=== PATIENT | male | born 1940 | race Caucasian/White ===

== ENCOUNTER 2020-07-14 10:20 | Inpatient (IN) | payer OTHER ==
[~2020-07-14] VITALS: Ht 185.4 cm; Wt 104.3 kg
[~2020-07-14 10:20] MED LIST: ALLOPURINOL100 MG PO; CRESTOR10 MG PO; FLOMAX 0.4 MG0.4 MG PO; GABAPENTIN800 MG PO; GLIPIZIDE5 MG PO; HYDROXYZINE HCL10 MG PO; ISOSORBIDE MONO30 MG PO; JANUVIA100 MG PO; LISINOPRIL5 MG PO; PAROXETINE HCL10 MG PO; PROTONIX 40 MG40 M1 PO
[2020-07-14 11:37] LABS: HEMOGLOBIN 11.9 gm/dl (14.0-17.5); RED BLOOD COUNT 3.66 M/UL (4.20-5.50); WHITE BLOOD COUNT 6.4 K/UL (4.5-11.0)
[2020-07-14 12:53] LABS: BUN/CREATININE RATIO 19 (0-10)
[2020-07-15 04:00] LABS: HEMOGLOBIN 10.9 gm/dl (14.0-17.5); RED BLOOD COUNT 3.38 M/UL (4.20-5.50)
[2020-07-15 04:02] LABS: WHITE BLOOD COUNT 9.6 K/UL (4.5-11.0)
[2020-07-15 12:16] LABS: HEMOGLOBIN 9.8 gm/dl (14.0-17.5); WHITE BLOOD COUNT 10.2 K/UL (4.5-11.0)
[2020-07-15 12:18] LABS: RED BLOOD COUNT 3.03 M/UL (4.20-5.50)
[2020-07-16 02:49] LABS: HEMOGLOBIN 9.5 gm/dl (14.0-17.5); RED BLOOD COUNT 2.78 M/UL (4.20-5.50); WHITE BLOOD COUNT 9.5 K/UL (4.5-11.0)
[2020-07-17 03:53] LABS: HEMOGLOBIN 7.9 gm/dl (14.0-17.5); WHITE BLOOD COUNT 9.1 K/UL (4.5-11.0)
--- NOTE | 2020-07-17 03:59 | NUR ---
07/16/20 2300 PT PULLED ROBERTSON CATHETER OUT. SMALL AMOUNT OF BLOOD NOTED TO INSERTION SITE. WILL LET MD KNOW TO SEE IF HE WANTS IT REINSERTED.
[2020-07-17 04:04] LABS: RED BLOOD COUNT 2.4 M/UL (4.20-5.50)
--- NOTE | 2020-07-17 05:02 | NUR ---
0430 PT BLADDERED SCAN 600 ML NOTED
--- NOTE | 2020-07-17 14:00 | NUR ---
COURTNEYE STATES PT WITH TEMP OF 102. TYLENOL ORDERED AND GIVEN
--- NOTE | 2020-07-17 18:24 | NUR ---
PER MD OK TO LEAVE OUT ROBERTSON CATHETER, IF PATIENT DOESNT URINATE REPLACE CATHETER.
[2020-07-18 06:31] LABS: WHITE BLOOD COUNT 7.8 K/UL (4.5-11.0)
[2020-07-18 06:55] LABS: HEMOGLOBIN 6.6 gm/dl (14.0-17.5); RED BLOOD COUNT 2.01 M/UL (4.20-5.50)
[2020-07-18 11:15] LABS: HEMOGLOBIN 6.7 gm/dl (14.0-17.5)
[2020-07-18 19:05] LABS: HEMOGLOBIN 7.4 gm/dl (14.0-17.5)
[2020-07-19 02:32] LABS: RED BLOOD COUNT 2.1 M/UL (4.20-5.50); WHITE BLOOD COUNT 7.4 K/UL (4.5-11.0)
[2020-07-19 02:39] LABS: HEMOGLOBIN 6.8 gm/dl (14.0-17.5)
[2020-07-19 11:14] LABS: HEMOGLOBIN 8.3 gm/dl (14.0-17.5)
--- NOTE | 2020-07-19 18:19 | NUR ---
CHANGED PT AQUACEL DRESSING. SEROSENGANIOUS DRAINAGE NOTED ON DRESSING. SITE LOOKS GOOD WITH MILD REDNESS AND MODERATE EDEMA AT INCISION SITE.
[2020-07-20 03:08] LABS: HEMOGLOBIN 7.4 gm/dl (14.0-17.5); WHITE BLOOD COUNT 6.1 K/UL (4.5-11.0)
[2020-07-20 03:09] LABS: RED BLOOD COUNT 2.33 M/UL (4.20-5.50)
[2020-07-21 05:44] LABS: HEMOGLOBIN 7.4 gm/dl (14.0-17.5); RED BLOOD COUNT 2.3 M/UL (4.20-5.50); WHITE BLOOD COUNT 6.2 K/UL (4.5-11.0)
[2020-07-22 03:45] LABS: HEMOGLOBIN 7.8 gm/dl (14.0-17.5); RED BLOOD COUNT 2.43 M/UL (4.20-5.50); WHITE BLOOD COUNT 6.7 K/UL (4.5-11.0)
[2020-07-22 04:04] LABS: BUN/CREATININE RATIO 29 (0-10)
[2020-07-23 03:02] LABS: HEMOGLOBIN 7.2 gm/dl (14.0-17.5); RED BLOOD COUNT 2.24 M/UL (4.20-5.50); WHITE BLOOD COUNT 6.9 K/UL (4.5-11.0)
[2020-07-23 03:23] LABS: BUN/CREATININE RATIO 28 (0-10)
[2020-07-23 12:45] LABS: HEMOGLOBIN 7.2 gm/dl (14.0-17.5)
[2020-07-23 20:00] LABS: HEMOGLOBIN 8.5 gm/dl (14.0-17.5)
[2020-07-24 02:50] LABS: HEMOGLOBIN 8.4 gm/dl (14.0-17.5); WHITE BLOOD COUNT 8.4 K/UL (4.5-11.0)
[2020-07-24 02:58] LABS: RED BLOOD COUNT 2.67 M/UL (4.20-5.50)
[2020-07-24 03:24] LABS: BUN/CREATININE RATIO 26 (0-10)
--- NOTE | 2020-07-24 16:17 | NUR ---
KATERYNA HURLEY WITH DR. DELONG'S OFFICE CALLED AND STATES WILL COME ASSESS PT IN AM AND SEE IF CYSTO IS NEEDED AND IF NEEDED WITH MILLA FOR THURSDAY
[2020-07-25 02:49] LABS: HEMOGLOBIN 8.6 gm/dl (14.0-17.5); RED BLOOD COUNT 2.67 M/UL (4.20-5.50); WHITE BLOOD COUNT 10.1 K/UL (4.5-11.0)
[2020-07-25 03:16] LABS: BUN/CREATININE RATIO 22 (0-10)
[2020-07-25 22:47] LABS: HEMOGLOBIN 8.6 gm/dl (14.0-17.5)
[2020-07-26 06:20] LABS: HEMOGLOBIN 8.9 gm/dl (14.0-17.5); RED BLOOD COUNT 2.81 M/UL (4.20-5.50); WHITE BLOOD COUNT 12.2 K/UL (4.5-11.0)
[2020-07-27 09:19] LABS: HEMOGLOBIN 8.7 gm/dl (14.0-17.5); RED BLOOD COUNT 2.79 M/UL (4.20-5.50); WHITE BLOOD COUNT 12.9 K/UL (4.5-11.0)
[2020-07-27 09:55] LABS: BUN/CREATININE RATIO 29 (0-10)
[2020-07-28 02:52] LABS: HEMOGLOBIN 8.5 gm/dl (14.0-17.5); RED BLOOD COUNT 2.69 M/UL (4.20-5.50); WHITE BLOOD COUNT 12.7 K/UL (4.5-11.0)
[2020-07-29 02:44] LABS: HEMOGLOBIN 7.9 gm/dl (14.0-17.5); RED BLOOD COUNT 2.48 M/UL (4.20-5.50)
[2020-07-29 02:50] LABS: WHITE BLOOD COUNT 9.2 K/UL (4.5-11.0)
[2020-07-30 04:33] LABS: HEMOGLOBIN 8.1 gm/dl (14.0-17.5); RED BLOOD COUNT 2.64 M/UL (4.20-5.50)
[2020-07-31 03:16] LABS: HEMOGLOBIN 8.7 gm/dl (14.0-17.5); RED BLOOD COUNT 2.79 M/UL (4.20-5.50); WHITE BLOOD COUNT 9.5 K/UL (4.5-11.0)
[2020-08-01 06:03] LABS: HEMOGLOBIN 8.5 gm/dl (14.0-17.5)
--- NOTE | 2020-08-01 18:10 | NUR ---
patient has been up in chair today and tolerated well.
[2020-08-03] MEDS ORDERED: ELIQUIS 5 MG TAB5 MG PO (12:13)
[2020-08-03] MEDS ORDERED: ASPIRIN EC81 MG PO (12:13)
[2020-08-03] MEDS ORDERED: LOPRESSOR 50 MG50 MG PO (12:13)
[2020-08-03] MEDS ORDERED: FUROSEMIDE20 MG PO (12:13)
== END 2020-08-03 18:02 | DRG 956 ==
LOC: ER1 10:20 → CDU 13:33 → PROG CARE 13:33 → M/S 13:33 → PROG CARE 07-23 17:16 → M/S 07-30 19:01
PROVIDERS: Internal Medicine; Orthopaedic Surgery; Physician Assistant; ADMIT Family Medicine
PROC: 0QSC06Z Reposition Left Lower Femur with Intramedullary Internal Fixation Device, Open Approach (ICD-10-PCS; 2020-07-15)
PROC: B24BZZZ Ultrasonography of Heart with Aorta (ICD-10-PCS; 2020-07-15)
PROC: 30233N1 Transfusion of Nonautologous Red Blood Cells into Peripheral Vein, Percutaneous Approach (ICD-10-PCS; principal; 2020-07-18)
PROC: 30233N1 Transfusion of Nonautologous Red Blood Cells into Peripheral Vein, Percutaneous Approach (ICD-10-PCS; 2020-07-19)
PROC: 30233N1 Transfusion of Nonautologous Red Blood Cells into Peripheral Vein, Percutaneous Approach (ICD-10-PCS; 2020-07-23)
PROC: 0TCD8ZZ Extirpation of Matter from Urethra, Via Natural or Artificial Opening Endoscopic (ICD-10-PCS; 2020-07-26)
DX: S72.142A Displaced intertrochanteric fracture of left femur, initial encounter for closed fracture (principal); S37.33XA Laceration of urethra, initial encounter; G92 Toxic encephalopathy; J96.01 Acute respiratory failure with hypoxia; I50.23 Acute on chronic systolic (congestive) heart failure; N17.9 Acute kidney failure, unspecified; D62 Acute posthemorrhagic anemia; F05 Delirium due to known physiological condition; I13.0 Hypertensive heart and chronic kidney disease with heart failure and stage 1 through stage 4 chronic kidney disease, or unspecified chronic kidney disease; J98.11 Atelectasis; T83.83XA Hemorrhage due to genitourinary prosthetic devices, implants and grafts, initial encounter; W06.XXXA Fall from bed, initial encounter; Z20.822 Contact with and (suspected) exposure to COVID-19; I25.10 Atherosclerotic heart disease of native coronary artery without angina pectoris; Z95.1 Presence of aortocoronary bypass graft; I25.5 Ischemic cardiomyopathy; T50.995A Adverse effect of other drugs, medicaments and biological substances, initial encounter; E88.09 Other disorders of plasma-protein metabolism, not elsewhere classified; I35.0 Nonrheumatic aortic (valve) stenosis; I48.0 Paroxysmal atrial fibrillation; R01.1 Cardiac murmur, unspecified; D72.828 Other elevated white blood cell count; N40.0 Benign prostatic hyperplasia without lower urinary tract symptoms; M10.9 Gout, unspecified; K21.9 Gastro-esophageal reflux disease without esophagitis; E78.5 Hyperlipidemia, unspecified; E11.22 Type 2 diabetes mellitus with diabetic chronic kidney disease; Z98.890 Other specified postprocedural states; Z87.891 Personal history of nicotine dependence; Z82.49 Family history of ischemic heart disease and other diseases of the circulatory system; Z79.899 Other long term (current) drug therapy; N18.30 Chronic kidney disease, stage 3 unspecified; Y83.8 Other surgical procedures as the cause of abnormal reaction of the patient, or of later complication, without mention of misadventure at the time of the procedure; Z79.01 Long term (current) use of anticoagulants
CPT/HCPCS: 36415; 36430; 51702; 70450; 71045; 73501; 73502; 73552; 76000; 80048; 80053; 80061; 81001; 82140; 82550; 82553; 82570; 82962; 83036; 83605; 83735; 83874; 83880; 84100; 84156; 84439; 84443; 84484; 85014; 85018; 85025; 85027; 85610; 85730; 86850; 86900; 86901; 86920; 87040; 93005; 94760; 97110; 97110-GP-CQ; 97116-GP-CQ; 97162; 97164; 97166; 97168; 97530; 97530-GP-CQ; 99285; A6212; C1713; J0690; J1205; J1650; J1940; J2001; J2270; J2405; J2550; J2704; J2710; J3010; J3475; J7030; J7040; J7050; J7120; P9016; Q9967; U0002

== ENCOUNTER 2020-10-03 18:10 | Inpatient (IN) | payer OTHER ==
[~2020-10-03] VITALS: Ht 185.4 cm; Wt 103.8 kg
[~2020-10-03 18:10] MED LIST changes: +ASPIRIN EC81 MG PO; +ELIQUIS 5 MG TAB5 MG PO; +FUROSEMIDE20 MG PO; +LOPRESSOR 50 MG50 MG PO
[2020-10-03] MEDS ORDERED: ELIQUIS 2.5 MG2.5 MG GT (22:05)
[2020-10-03] MEDS ORDERED: LOPRESSOR 25 MG25 MG PO (22:08)
[2020-10-03] MEDS ORDERED: FERROUS SULFAT325 M2 PO (22:10)
[2020-10-03] MEDS ORDERED: LISINOPRIL5 MG PO (22:11)
[2020-10-03] MEDS ORDERED: HYDROXYZINE HCL10 MG PO (22:12)
[2020-10-03] MEDS ORDERED: AMBIEN5 MG PO (22:14)
[2020-10-04 06:34] LABS: HEMOGLOBIN 9.4 gm/dl (14.0-17.5); RED BLOOD COUNT 3.15 M/UL (4.20-5.50); WHITE BLOOD COUNT 7.2 K/UL (4.5-11.0)
[2020-10-05 03:11] LABS: HEMOGLOBIN 8.6 gm/dl (14.0-17.5); RED BLOOD COUNT 2.93 M/UL (4.20-5.50); WHITE BLOOD COUNT 6.1 K/UL (4.5-11.0)
--- NOTE | 2020-10-05 14:33 | NUR ---
PT WAS STABLE WITH 100 OXYGEN STAT AND A HR OF 112. WAS DOING ROUNDS AND CAME IN AND DECIDED TO INTUBATE BASED OFF OF ABG WITH A CO2 OF 90. REAL ESTATE LISTING CONSULTANT WAS CALLED AND THE PT RECIEVED 5MG OF ETOMIDATE AND 50 MG OF SUCC. PT WAS SEDATED ENOUGH TO INTUBATE. PT WAS INTUBATED AND THEN TRANSPORTED TO THE UNIT. CHEST XRAY WAS PREFORMED IN ROOM AFTER INTUBATION WAS DONE. NG TUBE WAS ALSO PLACED IN THE RIGHT NARE BY GUERRERO NIEVES.
[2020-10-06 04:20] LABS: HEMOGLOBIN 8.9 gm/dl (14.0-17.5); RED BLOOD COUNT 3.04 M/UL (4.20-5.50)
[2020-10-06 04:21] LABS: WHITE BLOOD COUNT 12.7 K/UL (4.5-11.0)
[2020-10-07 04:47] LABS: HEMOGLOBIN 8.5 gm/dl (14.0-17.5); RED BLOOD COUNT 2.9 M/UL (4.20-5.50)
[2020-10-08 05:38] LABS: HEMOGLOBIN 8.5 gm/dl (14.0-17.5); RED BLOOD COUNT 2.9 M/UL (4.20-5.50)
[2020-10-08 05:39] LABS: WHITE BLOOD COUNT 10.2 K/UL (4.5-11.0)
[2020-10-09 06:03] LABS: BUN/CREATININE RATIO 41 (0-10)
[2020-10-09 06:44] LABS: HEMOGLOBIN 8.4 gm/dl (14.0-17.5); RED BLOOD COUNT 2.95 M/UL (4.20-5.50); WHITE BLOOD COUNT 7.8 K/UL (4.5-11.0)
[2020-10-10 05:18] LABS: HEMOGLOBIN 7.6 gm/dl (14.0-17.5)
[2020-10-10 05:25] LABS: RED BLOOD COUNT 2.57 M/UL (4.20-5.50)
[2020-10-10 16:24] LABS: HEMOGLOBIN 8.5 gm/dl (14.0-17.5)
[2020-10-11 03:37] LABS: HEMOGLOBIN 8.2 gm/dl (14.0-17.5)
[2020-10-11 03:43] LABS: RED BLOOD COUNT 2.84 M/UL (4.20-5.50); WHITE BLOOD COUNT 7.3 K/UL (4.5-11.0)
--- NOTE | 2020-10-11 10:36 | NUR ---
ATTEMPTED TO CONTACT PATIENTS SON MULTIPLE TIMES YESTERDAY AND TODAY. NO ANSWER AT EITHER NUMBER HE PREVIOUSLY GAVE ME AND VOICEMAIL IS FULL. SPOKE WITH PTS SISTER, SHE IS OK WITH HIM HAVING THE PROCEDURE BUT DOESNT WANT TO GIVE OFFICAL CONSENT, STATES THE SON IS THE DECISION MAKER. CONTACTED SON'S NEIGHBOR AND ASKED THEM TO DELIVER MESSAGE FOR HIM TO CALL ME REGARDING HIS DAD'S CARE. NO CONTACT AT THIS TIME. DR. STAFFORD AWARE, WILL PLAN FOR EMERGENT THORACENTESIS IF UNABLE TO CONTACT SON.
[2020-10-12 05:17] LABS: RED BLOOD COUNT 3.13 M/UL (4.20-5.50); WHITE BLOOD COUNT 14.1 K/UL (4.5-11.0)
[2020-10-13 03:38] LABS: HEMOGLOBIN 9.7 gm/dl (14.0-17.5); RED BLOOD COUNT 3.36 M/UL (4.20-5.50); WHITE BLOOD COUNT 17.4 K/UL (4.5-11.0)
[2020-10-14 03:54] LABS: HEMOGLOBIN 9.4 gm/dl (14.0-17.5); RED BLOOD COUNT 3.27 M/UL (4.20-5.50); WHITE BLOOD COUNT 16.2 K/UL (4.5-11.0)
[2020-10-15 05:09] LABS: HEMOGLOBIN 9.8 gm/dl (14.0-17.5); RED BLOOD COUNT 3.37 M/UL (4.20-5.50); WHITE BLOOD COUNT 16.2 K/UL (4.5-11.0)
[2020-10-15 05:30] LABS: BUN/CREATININE RATIO 92 (0-10)
--- NOTE | 2020-10-17 23:30 | NUR ---
PATIENT ADMITTED TO PCU FROM ICU. ARRIVED ON THE FLOOR AROUND 2315. PATIENTS VITALS WERE 60% O2, 115/53 (65), 32 RR, 100.2 TEMP
--- NOTE | 2020-10-18 03:58 | NUR ---
PATIENT AND WAS PRONOUCED AT 3:13 BY ME AND ARPIT VANG RN. NO SPON. BREATH SOUNDS WERE ASCULATATED, NO PULSE AND WAS CONFIRMED IN 2 LEADS. WAS CONTACTED AT 0318 AND IS AWARE. THE FIRST CALL ATTEMPTED TO THE FAMILY WAS THE SON, WHO DID NOT ANSWER AT 0320. AFTER SEVERAL TIMES CALLING THE CONTACT NUMBER, I CALLED HIS BROTHER, FRANCESCA AT 0328, WHO IS ON HIS WAY TO THE HOSPITAL TO SEE THE PATIENT. LATOYA WAS CALLED AND RULED OUT AT 0340.
== END 2020-10-18 03:13 | disposition expired | DRG 207 ==
LOC: PROG CARE 21:51 → CCU 21:51 → PROG CARE 10-17 22:36
PROVIDERS: Internal Medicine; Internal Medicine Cardiovascular Disease; Internal Medicine Nephrology; Internal Medicine Pulmonary Disease; ADMIT Internal Medicine
PROC: 5A09457 Assistance with Respiratory Ventilation, 24-96 Consecutive Hours, Continuous Positive Airway Pressure (ICD-10-PCS; 2020-10-03)
PROC: B24BZZ4 Ultrasonography of Heart with Aorta, Transesophageal (ICD-10-PCS; 2020-10-04)
PROC: 0BH17EZ Insertion of Endotracheal Airway into Trachea, Via Natural or Artificial Opening (ICD-10-PCS; 2020-10-05)
PROC: 02HV33Z Insertion of Infusion Device into Superior Vena Cava, Percutaneous Approach (ICD-10-PCS; 2020-10-05)
PROC: 0BC78ZZ Extirpation of Matter from Left Main Bronchus, Via Natural or Artificial Opening Endoscopic (ICD-10-PCS; 2020-10-05)
PROC: 3E033XZ Introduction of Vasopressor into Peripheral Vein, Percutaneous Approach (ICD-10-PCS; 2020-10-05)
PROC: 5A1955Z Respiratory Ventilation, Greater than 96 Consecutive Hours (ICD-10-PCS; principal; 2020-10-05 12:05)
PROC: 0W9B3ZZ Drainage of Left Pleural Cavity, Percutaneous Approach (ICD-10-PCS; 2020-10-11)
PROC: BB4BZZZ Ultrasonography of Pleura (ICD-10-PCS; 2020-10-11)
DX: J96.21 Acute and chronic respiratory failure with hypoxia (principal); A41.9 Sepsis, unspecified organism; J69.0 Pneumonitis due to inhalation of food and vomit; R65.21 Severe sepsis with septic shock; I50.43 Acute on chronic combined systolic (congestive) and diastolic (congestive) heart failure; N17.0 Acute kidney failure with tubular necrosis; J18.9 Pneumonia, unspecified organism; G92 Toxic encephalopathy; I21.A1 Myocardial infarction type 2; J44.0 Chronic obstructive pulmonary disease with (acute) lower respiratory infection; J44.1 Chronic obstructive pulmonary disease with (acute) exacerbation; J90 Pleural effusion, not elsewhere classified; J98.11 Atelectasis; E87.0 Hyperosmolality and hypernatremia; N17.9 Acute kidney failure, unspecified; I13.0 Hypertensive heart and chronic kidney disease with heart failure and stage 1 through stage 4 chronic kidney disease, or unspecified chronic kidney disease; I47.1 Supraventricular tachycardia; I42.8 Other cardiomyopathies; D61.818 Other pancytopenia; E87.2 Acidosis; R18.8 Other ascites; Z51.5 Encounter for palliative care; Z66 Do not resuscitate; Z20.822 Contact with and (suspected) exposure to COVID-19; J96.22 Acute and chronic respiratory failure with hypercapnia; R57.0 Cardiogenic shock; T38.0X5A Adverse effect of glucocorticoids and synthetic analogues, initial encounter; E87.5 Hyperkalemia; E87.8 Other disorders of electrolyte and fluid balance, not elsewhere classified; I50.813 Acute on chronic right heart failure; K59.00 Constipation, unspecified; L89.612 Pressure ulcer of right heel, stage 2; L89.620 Pressure ulcer of left heel, unstageable; Z96.698 Presence of other orthopedic joint implants; N18.30 Chronic kidney disease, stage 3 unspecified; N40.0 Benign prostatic hyperplasia without lower urinary tract symptoms; D63.1 Anemia in chronic kidney disease; M10.9 Gout, unspecified; E11.22 Type 2 diabetes mellitus with diabetic chronic kidney disease; F17.210 Nicotine dependence, cigarettes, uncomplicated; I08.2 Rheumatic disorders of both aortic and tricuspid valves; E11.65 Type 2 diabetes mellitus with hyperglycemia; E88.09 Other disorders of plasma-protein metabolism, not elsewhere classified; I48.0 Paroxysmal atrial fibrillation; I25.10 Atherosclerotic heart disease of native coronary artery without angina pectoris; E87.6 Hypokalemia; I49.3 Ventricular premature depolarization; Z86.73 Personal history of transient ischemic attack (TIA), and cerebral infarction without residual deficits; Z79.01 Long term (current) use of anticoagulants; Z95.1 Presence of aortocoronary bypass graft; Z79.4 Long term (current) use of insulin; Z82.49 Family history of ischemic heart disease and other diseases of the circulatory system; Z91.14 Patient's other noncompliance with medication regimen; Z74.01 Bed confinement status; Z83.3 Family history of diabetes mellitus
CPT/HCPCS: ECHO; 31500; 36415; 36600; 71045; 71250; 80048; 80053; 80202; 81001; 82140; 82272; 82436; 82550; 82553; 82570; 82728; 82803; 82962; 83540; 83550; 83605; 83615; 83735; 83880; 84100; 84133; 84156; 84300; 84439; 84443; 84484; 85014; 85018; 85025; 85027; 85379; 85384; 85610; 85730; 86140; 87040; 87070; 87081; 87086; 87205; 89050; 93005; 93306; 94002; 94003; 94640; 94660; 94760; A6212; C1751; C9113; J0330; J1205; J1650; J1940; J2060; J2185; J2250; J2270; J2370; J2704; J2920; J3370; J7030; J7040; J7070; P9047; U0002